=== PATIENT | male | born 1990 | race Caucasian/White ===

== ENCOUNTER 2017-01-08 23:56 | Emergency (ER) | payer OTHER ==
[2017-01-09 02:11] LABS: BASOPHIL % 1.4 % (0-2); PLATELET COUNT 201 x10^3mcL (130-400); RED CELL DISTRIBUTION WIDTH 13.8 % (11.5-14.5)
[2017-01-09 02:16] LABS: CALCIUM 8.6 mg/dL (8.5-10.1); CARBON DIOXIDE 24.3 mmol/L (21-32); CHLORIDE SERUM 104 mmol/L (98-107); GFR1 > 60 mL/min; GLUCOSE SERUM 100 mg/dL (74-106); POTASSIUM SERUM 3.8 mmol/L (3.5-5.1); SODIUM SERUM 140 mmol/L (136-145)
[2017-01-09 02:21] LABS: ALBUMIN 4.3 g/dL (3.4-5.0); ALKALINE PHOSPHATASE 97 U/L (46-116); ALT/SGPT 40 U/L (16-63); AST/SGOT 24 U/L (15-37); BILIRUBIN TOTAL 0.31 mg/dL (0.20-1.00); TOTAL PROTEIN, SERUM 6.8 g/dL (6.4-8.2)
[2017-01-09 02:32] LABS: CK-MB 0.5 ng/mL (0-3.6)
[2017-01-09 03:23] VITALS: BP 132/25
== END 2017-01-09 03:23 | disposition home or self-care (01) ==
LOC: ED 23:56
PROVIDERS: Emergency Medicine
DX: M79.1 Myalgia (principal)
CPT/HCPCS: J1885; J2270; J7030; Q0092

== ENCOUNTER 2017-01-10 23:26 | Emergency (ER) | payer OTHER ==
[2017-01-11 02:52] VITALS: BP 122/83
== END 2017-01-11 02:52 | disposition home or self-care (01) ==
LOC: ED 23:26
DX: J02.9 Acute pharyngitis, unspecified (principal); M79.1 Myalgia
CPT/HCPCS: J1885